=== PATIENT | female | born 1980 | race Caucasian/White ===

== ENCOUNTER 2019-01-06 16:25 | Emergency (ER) | payer BC ==
[2019-01-06] MEDS ORDERED: Ketorolac 30 MG/ML SDV IM ONE (16:54)
--- NOTE | 2019-01-06 17:03 | EDM.PDOC ---
ED HPI GENERAL MEDICAL PROBLEM - General Chief Complaint: Lower Extremity Injury/Pain Stated Complaint: R FOOT INJURY Time Seen by Provider: 01/06/19 16:43 Source of Information: Reports: Patient, RN Notes Reviewed History Limitations: Reports: No Limitations - History of Present Illness INITIAL COMMENTS - FREE TEXT/NARRATIVE: Patient is a 38-year-old female who presents to the ED for evaluation of a right foot injury. The patient states that around 3:45 PM, she was getting out of the passenger side of her vehicle, and ended up stepping out with her right foot and she states that she rolled her right ankle at this time. She was wearing flip-flops. She states that it was very painful to bear weight on the right foot at that time, and she crawled into her house as she was in her garage. She states that even the slight pressure of ice on the ankle/foot causes more pain. She is experiencing most of the pain to the lateral portion of the right ankle and down into the mid foot. There is not a lot of swelling or bruising appreciated at this time. She notes a previously healed bone chip- type injury to her right ankle/foot. She would rate her pain at a 6 out of 10 when she is at rest and a 10 out of 10 with any activity or ambulation. She can move her foot however it is very painful to do so, and has limited range of motion at this time. She denies any pain into her R knee or hip. 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: ice Right Ankle Pain Score (Numeric/FACES): 6 - Related Data Allergies Allergy/AdvReac Type Severity Reaction Status Date / Time ibuprofen [From Motrin] Allergy Stomach Verified 01/06/19 16:35 Upset Penicillins Allergy Cannot Verified 01/06/19 16:35 Remember mold Allergy Cannot Uncoded 01/06/19 16:35 Remember Home Meds: Home Meds Aloe Vera/Sodium Chloride [[place] Saline Nasal Gel] 1 applic TOP ASDIRECTED [History] Loratadine 10 mg PO DAILY 01/06/19 [History] Melatonin 10 mg PO BEDTIME 01/06/19 [History] Sertraline [Zoloft] 50 mg PO DAILY 01/06/19 [History] Past Medical History Other HEENT History: seasonal allergies 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 , 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 - Past Surgical History HEENT Surgical History: Reports: Tonsillectomy Social & Family History - Tobacco Use Smoking Status *Q: Current Every Day Smoker Years of Tobacco use: 17 Packs/Tins Daily: 0.5 - Caffeine Use Caffeine Use: Reports: Coffee, Tea - Recreational Drug Use Recreational Drug Use: No Review of Systems - Review of Systems Review Of Systems: See Below Constitutional: Reports: No Symptoms Eyes: Reports: No Symptoms Ears: Reports: No Symptoms Nose: Reports: No Symptoms Mouth/Throat: Reports: No Symptoms Respiratory: Reports: No Symptoms Cardiovascular: Reports: No Symptoms GI/Abdominal: Reports: No Symptoms Genitourinary: Reports: No Symptoms Musculoskeletal: Reports: Joint Swelling (R ankle pain, R mid foot pain) Skin: Reports: No Symptoms Neurological: Denies: Numbness, Pre-Existing Deficit, Tingling Psychiatric: Reports: No Symptoms ED EXAM, GENERAL - Physical Exam Exam: See Below Exam Limited By: No Limitations General Appearance: Alert, WD/WN, No Apparent Distress Respiratory/Chest: No Respiratory Distress, Lungs Clear, Normal Breath Sounds, No Accessory Muscle Use, Chest Non-Tender Cardiovascular: Normal Peripheral Pulses, Regular Rate, Rhythm, No Murmur Peripheral Pulses: 3+: Dorsalis Pedis (L), Dorsalis Pedis (R) Extremities: Normal Inspection, Normal Capillary Refill, Limited Range of Motion (d/t pain, she is able to move the foot in all ROM) Neurological: Alert, Oriented, Normal Cognition, No Motor/Sensory Deficits Psychiatric: Normal Affect, Normal Mood Skin Exam: Warm, Dry, Intact, Normal Color, No Rash ED TRAUMA EXTREMITY PROCEDURES - Splinting Right Lower Extremity Splint Site: R lower leg Pre-Procedure NV Status: Normal Post-Procedure NV Status: Normal Splint Material: Fiberglass Splint Design: Posterior (short leg) Applied & Form Fitted By: Provider, Nurse Provider Post-Splint Application NV Check: NV Status Normal, Good Position Complications: No Course - Vital Signs Last Recorded V/S: Last Vital Signs Temp 97.5 F 01/06/19 16:40 Pulse 87 01/06/19 16:40 Resp 20 01/06/19 16:40 BP 138/89 01/06/19 16:40 Pulse Ox 99 01/06/19 16:40 - Orders/Labs/Meds Orders: Active Orders 24 hr Category Date Time Status Ankle Min 3V Rt [CR] Stat Exams 01/06/19 16:48 Taken Foot 2V Rt [CR] Stat Exams 01/06/19 18:05 Taken DME for Discharge [COMM] Routine Oth 01/06/19 19:13 Ordered Meds: Medications Discontinued Medications Generic Name Dose Route Start Last Admin Trade Name Princess PRN Reason Stop Dose Admin Ketorolac Tromethamine 30 mg 01/06/19 16:54 01/06/19 17:06 Toradol IM 01/06/19 16:55 30 mg ONETIME ONE Administration - Re-Assessments/Exams Free Text/Narrative Re-Assessment/Exam: 01/06/19 17:03 Patient presents to the ED for the evaluation of a right ankle injury. I have ordered 30 mg IM Toradol, and ankle x-rays for further evaluation of her injury. 01/06/19 17:15 There does not appear to be any bony fracture or abnormality of the Right ankle x-rays taken. These were reviewed by Dr. Mckeon and myself. 01/06/19 18:07 V-rad did read the ankle x-ray and did not identify any acute bony fracture. Pt was re-assessed at bedside and is having increasing pain into the R midfoot and is requesting a foot x-ray be obtained, as I told her that I only x-rayed her ankle. I have ordered a R foot x-ray for evaluation. 01/06/19 18:54 Patient's foot x-ray is done, and does demonstrate a midshaft fifth metatarsal fracture. We will put her in a posterior short leg splint and give her crutches with nonweightbearing recommendation and have her follow-up with ortho on Wednesday. 01/06/19 19:17 The patient's splint was applied, and I did ask if she would like to have some hydrocodone tablets for further pain relief. She declined any of this medication at this time. She states that she will try to get by with Tylenol only. As she feels that she has stronger pain medications that she might try to walk on the foot. I did tell her that she needs to be strictly nonweightbearing until she can be evaluated by orthopedics. She is understanding of this. Departure - Departure Time of Disposition: 19:15 Disposition: Home, Self-Care 01 Condition: Fair Clinical Impression: Metatarsal fracture Qualifiers: Encounter type: initial encounter Metatarsal bone: fifth Fracture type: closed Fracture alignment: nondisplaced Laterality: right Qualified Code(s): S92.354A - Nondisplaced fracture of fifth metatarsal bone, right foot, initial encounter for closed fracture - Discharge Information *PRESCRIPTION DRUG MONITORING PROGRAM REVIEWED*: No *COPY OF PRESCRIPTION DRUG MONITORING REPORT IN PATIENT SUE: No Instructions: Crutch Use, Adult, [id number], Cast or Splint Care, Adult, Easy -to-Read, Metatarsal Fracture Referrals: Carol Juarez NP [Primary Care Provider] - Forms: ED Department Discharge Additional Instructions: You have been evaluated in the ED for your right foot/ankle injury. Your x-ray demonstrated a mid shaft fracture of your 5th metatarsal of your right foot. Please use ice as tolerated to the affected area. You may take Tylenol 500 mg or ibuprofen 600mg q6 hrs for pain relief. Please do so until you have a tolerable level of pain with activity. Do not exceed 4000mg tylenol, Do not exceed 3200mg ibuprofen in a 24 hour time period. Please call Ortho for follow-up and further evaluation Dr. Nayak is our orthopedic surgeon, his office number is [phone]. Please call and set up an appointment as soon as possible for further management. You will need to stay nonweightbearing until you can be evaluated by or so. Please use the crutches as provided to stay nonweightbearing. You will need to try to keep the splint as clean as dry as possible. Please try not to remove it before you are evaluated by ortho. Please return to ED if your symptoms should change or worsen. - My Orders Last 24 Hours: My Active Orders 01/06/19 16:48 Ankle Min 3V Rt [CR] Stat 01/06/19 18:05 Foot 2V Rt [CR] Stat 01/06/19 19:13 DME for Discharge [COMM] Routine - Assessment/Plan Last 24 Hours: My Active Orders 01/06/19 16:48 Ankle Min 3V Rt [CR] Stat 01/06/19 18:05 Foot 2V Rt [CR] Stat 01/06/19 19:13 DME for Discharge [COMM] Routine
--- NOTE | 2019-01-08 19:35 | CR ---
Right foot: Two views of the right foot were obtained. Comparison: No previous foot exam. Fracture is identified within the distal shaft of the right fifth metatarsal. Very minimal displacement by about 1 mm is seen. No additional fracture or other bony abnormality is appreciated. Impression: 1. Distal fifth metatarsal shaft fracture. Diagnostic code #3
--- NOTE | 2019-01-08 19:35 | CR ---
Right ankle: Four views of the right ankle were obtained. Comparison: No previous study. Ankle mortise is symmetric. No fracture, dislocation or other bony abnormality is seen. Impression: 1. No abnormality is appreciated on right ankle exam. Diagnostic code #1 Agree with preliminary report issued by [facility] ([facility] preliminary report dictated on 01/06/19, 6:51 PM Central Time)
== END 2019-01-06 19:20 | disposition home or self-care (01) ==
LOC: JD.ED 16:25
DX: S92.354A Nondisplaced fracture of fifth metatarsal bone, right foot, initial encounter for closed fracture (principal); F17.210 Nicotine dependence, cigarettes, uncomplicated; Z88.0 Allergy status to penicillin; Z88.6 Allergy status to analgesic agent; Z88.8 Allergy status to other drugs, medicaments and biological substances; Z79.899 Other long term (current) drug therapy; Z98.890 Other specified postprocedural states; X50.1XXA Overexertion from prolonged static or awkward postures, initial encounter
CPT/HCPCS: 29515; 73610; 73620; 96374; 99283; J1885; 29125

== ENCOUNTER 2021-03-20 16:42 | Emergency (ER) | payer BC ==
[2021-03-20] MEDS ORDERED: Sodium Chloride 0.9% 10 ML Syringe FLUSH PRN (18:01)
[2021-03-20] MEDS ORDERED: Hyoscyamine 0.125 MG Tab.SL SL ONE (18:02)
--- NOTE | 2021-03-20 19:14 | US ---
Limited abdominal ultrasound: Multiple real-time images of the upper right abdomen were obtained. Comparison: No prior abdominal imaging is available. Findings: Visualized portions of the pancreas show no discrete abnormality. Liver appears to be slightly fatty. No focal abnormality is appreciated within the liver. Gallbladder contains no gallstones. No gallbladder wall thickening or biliary duct dilatation is seen. Proximal aorta shows no aneurysm. Inferior vena cava is patent. Main portal vein is patent. Right kidney shows no hydronephrosis or mass. Right kidney has a length of 10.1 cm. There appears to be a small right-sided pleural effusion. Impression: 1. Probable mild fatty infiltration within the liver. 2. Questionable small right-sided pleural effusion. 3. Other portions of the right upper quadrant abdominal ultrasound appear within normal limits. Diagnostic code #3
--- NOTE | 2021-03-20 19:14 | EDM.PDOC ---
ED HPI GENERAL MEDICAL PROBLEM - General Chief Complaint: Abdominal Pain Stated Complaint: PAIN BEHIND RIBS ON RT SIDE Time Seen by Provider: 03/20/21 17:05 Source of Information: Reports: Patient History Limitations: Reports: No Limitations - History of Present Illness INITIAL COMMENTS - FREE TEXT/NARRATIVE: 40-year-old female presents the emergency department today with complaints of pain under her right rib. She states that she developed pain to her right upper abdomen today while she was at work. She states that the pain feels as though its just under her right rib. She states that it is a colicky type of pain. It has caused her to feel nauseated but she has not had any vomiting. She states that last evening at suppertime she had fried food mixed with dessert. She woke this morning and then they ate a [place] okay and immediately after developed the discomfort. She denies any recent fever or chills. She denies any vomiting or diarrhea or no urinary symptoms. She states that the pain has been fairly constant ever since. She does have her gallbladder. She denies any injury or trauma to her rib area. 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 ED EXAM, GI/ABD - Physical Exam Exam: See Below Exam Limited By: No Limitations General Appearance: Alert, WD/WN, No Apparent Distress Ears: Normal External Exam, Hearing Grossly Normal Nose: Normal Inspection Throat/Mouth: Normal Inspection, Normal Lips, Normal Voice, No Airway Compromise Head: Atraumatic Neck: Normal Inspection, Supple Respiratory/Chest: No Respiratory Distress, Lungs Clear, Normal Breath Sounds, No Accessory Muscle Use, Chest Non-Tender Cardiovascular: Normal Peripheral Pulses, Regular Rate, Rhythm, No Edema, No Murmur GI/Abdominal Exam: Normal Bowel Sounds, Soft, No Distention. No: Non-Tender (Tenderness noted to right upper quadrant with deep palpation at McBurney's point.) (Female) Exam: Deferred Rectal (Female) Exam: Deferred Back Exam: Normal Inspection, Full Range of Motion Extremities: Normal Inspection Neurological: Alert, Oriented, Normal Cognition Skin Exam: Warm, Dry, Intact, Normal Color, No Rash Lymphatic: No Adenopathy Course - Vital Signs Text/Narrative:: As stated above, the patient developed pain in her abdomen just under her right rib area this morning after eating a cookie. Assessment is essentially unremarkable however she does have tenderness noted to her right abdomen with palpation. I have ordered labs to include a CBC, CMP, C-reactive protein, GGT and a lipase. I suspect that the cause of the discomfort is likely due to the patient's gallbladder so I have ordered a gallbladder ultrasound. I have also ordered Levsin to see if this aborts the pain. Last Recorded V/S: Last Vital Signs Temp 98.1 F 03/20/21 16:53 Pulse 80 03/20/21 16:53 Resp 16 03/20/21 16:53 BP 122/83 03/20/21 16:53 Pulse Ox 100 03/20/21 16:53 - Orders/Labs/Meds Orders: Active Orders 24 hr Category Date Time Status Sodium Chloride 0.9% [Saline Flush] Med 03/20/21 18:01 Active 10 ml FLUSH ASDIRECTED PRN Saline Lock Insert [OM.PC] Stat Oth 03/20/21 18:01 Ordered Medication Orders Sodium Chloride (Sodium Chloride 0.9% 10 Ml Syringe) 10 ml FLUSH ASDIRECTED PRN PRN Reason: Keep Vein Open Last Admin: 03/20/21 18:05 Dose: 10 ml Documented by: AGUSTINA Labs: Laboratory Tests 03/20/21 03/20/21 03/20/21 Range/Units 17:05 17:05 17:05 WBC 9.30 (3.98-10.04) K/mm3 RBC 4.53 (3.98-5.22) M/mm3 Hgb 15.0 (11.2-15.7) gm/dl Hct 43.4 (34.1-44.9) % MCV 95.8 H (79.4-94.8) fl MCH 33.1 H (25.6-32.2) pg MCHC 34.6 (32.2-35.5) g/dl RDW Std Deviation 41.9 (36.4-46.3) fL Plt Count 221 (182-369) K/mm3 MPV 11.0 (9.4-12.3) fl Neut % (Auto) 77.3 H (34.0-71.1) % Lymph % (Auto) 11.7 L (19.3-51.7) % Levy % (Auto) 7.8 (4.7-12.5) % Eos % (Auto) 2.6 (0.7-5.8) Baso % (Auto) 0.5 (0.1-1.2) % Neut # (Auto) 7.18 H (1.56-6.13) K/mm3 Lymph # (Auto) 1.09 L (1.18-3.74) K/mm3 Levy # (Auto) 0.73 H (0.24-0.36) K/mm3 Eos # (Auto) 0.24 (0.04-0.36) K/mm3 Baso # (Auto) 0.05 (0.01-0.08) K/mm3 Sodium 145 (136-145) mEq/L Potassium 3.9 (3.5-5.1) mEq/L Chloride 107 (98-107) mEq/L Carbon Dioxide 28 (21-32) mEq/L Anion Gap 13.9 (5-15) BUN 6 L (7-18) mg/dL Creatinine 0.9 (0.55-1.02) mg/dL Est Cr Clr Drug Dosing 63.33 mL/min Estimated GFR (MDRD) > 60 (>60) mL/min BUN/Creatinine Ratio 6.7 L (14-18) Glucose 102 H (70-99) mg/dL Calcium 8.5 (8.5-10.1) mg/dL Magnesium 2.0 (1.8-2.4) mg/dL Total Bilirubin 0.3 (0.2-1.0) mg/dL GGT 25 (5-55) U/L AST 23 (15-37) U/L ALT 45 (14-59) U/L Alkaline Phosphatase 98 (46-116) U/L C-Reactive Protein 0.7 (<1.0) mg/dL Total Protein 7.5 (6.4-8.2) g/dl Albumin 3.8 (3.4-5.0) g/dl Globulin 3.7 gm/dL Albumin/Globulin Ratio 1.0 (1-2) Lipase 119 (73-393) U/L Meds: Medications Generic Name Dose Route Start Last Admin Trade Name Arshq PRN Reason Stop Dose Admin Sodium Chloride 10 ml 03/20/21 18:01 03/20/21 18:05 Sodium Chloride 0.9% 10 Ml Syringe FLUSH 10 ml ASDIRECTED PRN Administration Keep Vein Open Discontinued Medications Generic Name Dose Route Start Last Admin Trade Name Arshq PRN Reason Stop Dose Admin Hyoscyamine 0.125 mg 03/20/21 18:02 03/20/21 18:28 Hyoscyamine 0.125 Mg Tab.Sl SL 03/20/21 18:03 0.125 mg ONETIME ONE Administration Ketorolac Tromethamine 30 mg 03/20/21 19:18 03/20/21 19:27 Ketorolac 30 Mg/Ml Sdv IVPUSH 03/20/21 19:19 30 mg ONETIME ONE Administration - Re-Assessments/Exams Free Text/Narrative Re-Assessment/Exam: 03/20/21 19:18 Patient states that the Levsin initially did resolve her discomfort however she states it has returned somewhat. She says is not nearly as severe as it was. I will order Toradol 30 mg IV for the patient. 03/20/21 19:19 Hematology reveals a WBC of 9.30, hemoglobin 15.0, hematocrit 43.4, platelet count 221 Chemistry reveals a sodium of 145, potassium 3.9, carbon dioxide 28, anion gap 13.9, BUN 6, creatinine 0.9, glucose 102, magnesium 2.0, total bilirubin 0.3, GGT 25, AST 23, ALT 45, alk phos 98, C-reactive protein 0.7, lipase 119 03/20/21 19:28 Radiologist impression Limited abdominal ultrasound: Visualized portions of the pancreas show no discrete abnormality. Liver appears to be slightly fatty. No focal abnormality is appreciated within the liver. Gallbladder contains no gallstones. No gallbladder wall thickening or biliary duct dilation is seen. Proximal aorta shows no aneurysm. Inferior vena cava is patent. Main portal vein is patent. Right kidney shows no hydronephrosis or mass. Right kidney has a length of 10.1 cm. There appears to be a small right-sided pleural effusion. 03/20/21 19:29 Pleural effusion is likely the cause of the patient's discomfort. She does not have an elevated white count or C-reactive protein level. Her O2 saturations are 100% on room air. Toradol will likely help with the discomfort. The patient will then be discharged to home with strong return precautions. She can follow- up with her primary care provider in about a week for reevaluation. Departure - Departure Time of Disposition: 19:55 Disposition: Home, Self-Care 01 Condition: Good Clinical Impression: Pleural effusion, right - Discharge Information Instructions: Pain Medicine Instructions, [id number] Referrals: Carol Juarez NP [Primary Care Provider] - Forms: ED Department Discharge Additional Instructions: You were seen in the emergency department today with right upper abdomen/rib pain that started today after eating a cookie. Labs were completed which were essentially unremarkable. Ultrasound of the abdomen did show a small pleural effusion. Unknown cause of this. However it likely will resolve on its own. Treatment for this is nonsteroidal anti-inflammatories. You did receive an IV dose of this while in the emergency department and it did seem to help your pain. You stated that you cannot take ibuprofen however Aleve is also a nonsteroidal anti-inflammatory. If you should decide to take this medication be sure to take it with food to prevent stomach irritation. You may take 1-2 tabs every 12 hours to decrease pain and inflammation. Otherwise may take Tylenol 650 mg every 4 hours as needed for pain. Recommend that you follow-up with your primary care provider, Carol Juarez, if you are not better in a week or sooner if you develop worsening shortness of breath. Sepsis Event Note (ED) - Focused Exam Vital Signs: Vital Signs Temp Pulse Resp BP Pulse Ox 03/20/21 16:53 98.1 F 80 16 122/83 100 - My Orders Last 24 Hours: My Active Orders 03/20/21 18:01 Sodium Chloride 0.9% [Saline Flush] 10 ml FLUSH ASDIRECTED PRN Saline Lock Insert [OM.PC] Stat - Assessment/Plan Last 24 Hours: My Active Orders 03/20/21 18:01 Sodium Chloride 0.9% [Saline Flush] 10 ml FLUSH ASDIRECTED PRN Saline Lock Insert [OM.PC] Stat
[2021-03-20] MEDS ORDERED: Ketorolac 30 MG/ML SDV IVPUSH ONE (19:18)
== END 2021-03-20 20:03 | disposition home or self-care (01) ==
LOC: JD.ED 16:42
DX: J90 Pleural effusion, not elsewhere classified (principal); E66.9 Obesity, unspecified; Z68.30 Body mass index [BMI] 30.0-30.9, adult; Z88.0 Allergy status to penicillin; Z91.09 Other allergy status, other than to drugs and biological substances; Z88.8 Allergy status to other drugs, medicaments and biological substances; Z72.0 Tobacco use
CPT/HCPCS: 36415; 76705; 80053; 82977; 83690; 83735; 85025; 86140; 96374; 99284; A9270; J1885

== ENCOUNTER 2021-09-15 17:21 | Emergency (ER) | payer BC ==
[2021-09-15] MEDS ORDERED: LORazepam 1 MG Tab PO ONE (17:55)
[2021-09-15] MEDS ORDERED: Sodium Chloride 0.9% 10 ML Syringe FLUSH PRN (17:57)
[2021-09-15] MEDS ORDERED: Sodium Chloride 0.9% 1,000 ML IV STA (18:31)
== END 2021-09-15 20:17 | disposition home or self-care (01) ==
LOC: JD.ED 17:21
DX: F41.9 Anxiety disorder, unspecified (principal); R42 Dizziness and giddiness; E66.9 Obesity, unspecified; Z68.30 Body mass index [BMI] 30.0-30.9, adult; Z72.0 Tobacco use; Z88.5 Allergy status to narcotic agent; Z88.8 Allergy status to other drugs, medicaments and biological substances; Z88.0 Allergy status to penicillin; Z91.048 Other nonmedicinal substance allergy status
CPT/HCPCS: 36415; 80053; 83735; 84439; 84443; 84484; 85025; 85379; 93005; 93010; 99284; 99284-25; A9270-GY; J7030